=== PATIENT | male | born 1965 | race African-American/Black ===

== ENCOUNTER 2021-06-28 17:32 | Outpatient (CLI) | payer SELFPAY | END 2021-06-28 17:33 | disposition short-term general hospital (02) | LOC: EMS 17:32 | DX: S98.122A Partial traumatic amputation of left great toe, initial encounter (principal); W29.3XXA Contact with powered garden and outdoor hand tools and machinery, initial encounter; Y93.89 Activity, other specified | CPT/HCPCS: A0425; A0429 ==

== ENCOUNTER 2022-01-23 14:52 | Outpatient (CLI) | payer MEDICAID | END 2022-01-23 14:53 | disposition short-term general hospital (02) | LOC: EMS 14:52 | DX: S38.1XXA Crushing injury of abdomen, lower back, and pelvis, initial encounter (principal); S28.0XXA Crushed chest, initial encounter; W31.89XA Contact with other specified machinery, initial encounter; Y93.H3 Activity, building and construction; Y92.69 Other specified industrial and construction area as the place of occurrence of the external cause; Y99.0 Civilian activity done for income or pay | CPT/HCPCS: A0425; A0427; A0999 ==

== ENCOUNTER 2022-12-29 13:50 | Outpatient (CLI) | payer MEDICAID ==
--- NOTE | 2022-12-29 16:41 | XRAY Report ---
PROCEDURE: Thoracic Spine 3 View INDICATIONS: CHRONIC THORACIC BACK PAIN TECHNIQUE: 3 views of the thoracic spine were acquired. COMPARISON: None. FINDINGS: Bones: No fractures or dislocations. No suspicious bony lesions. 12 pairs of ribs are noted, and a ppear intact where visualized. Slight rightward curvature of the thoracolumbar spine. Soft tissues: No paravertebral stripe thickening. IMPRESSION: No displaced fracture or traumatic subluxation. Reviewed by: Driss Umanzor on 12/29/2022 4:40 PM PDT Approved by: Driss Umanzor on 12/29/2022 4:40 PM PDT Station ID: [id number]
--- NOTE | 2022-12-29 16:43 | XRAY Report ---
PROCEDURE: Lumbar Spine 2 View INDICATIONS: CHRONIC THORACIC BACK PAIN TECHNIQUE: 2 views of the lumbar spine were acquired. COMPARISON: None. FINDINGS: Bones: 5 [id number] vertebrae are present. Slight leftward curvature of the spine. Grade 1 ante rolisthesis of L2 on L3. Moderate disc height loss at L2-3. Possible pars defect at L2-3. Soft tissues: Overlying bowel gas pattern is normal. No suspicious soft tissue calcifications. IMPRESSION: Possible pars defect at L2-3, with grade 1 anterolisthesis. This is an atypical location for a pars d efect, so underlying fracture not excluded. Consider CT or MRI for confirmation. Moderate disc height loss at L2-3. Reviewed by: Driss Umanzor on 12/29/2022 4:41 PM PDT Approved by: Driss Umanzor on 12/29/2022 4:41 PM PDT Station ID: [id number]
== END 2022-12-29 13:51 | disposition home or self-care (01) ==
LOC: DI 13:50
PROVIDERS: ATTEND Physician Assistant Medical
DX: M54.6 Pain in thoracic spine (principal); G89.29 Other chronic pain; M47.816 Spondylosis without myelopathy or radiculopathy, lumbar region

== ENCOUNTER 2023-01-11 09:18 | Outpatient (CLI) | payer MEDICAID ==
--- NOTE | 2023-01-11 17:49 | CT Report ---
PROCEDURE: LUMBAR SPINE WO INDICATIONS: CHRONIC THORACIC BACK PAIN TECHNIQUE: Noncontrast 3 mm thick sections acquired from the T12 level to the sacrum. Sagittal and coronal refo rmats were constructed. For radiation dose reduction, the following was used: automated exposure co ntrol, adjustment of mA and/or kV according to patient size. COMPARISON: None. FINDINGS: Image quality: Excellent. Bones: 3 mm anterolisthesis of L2 on L3. Trace retrolisthesis of L3 on L4. No acute vertebral body co mpression fractures. No suspicious lytic or blastic bony lesions. Central spinal caliber is of norm al overall caliber. No pars defects. T12-L1: No canal stenosis or foraminal stenosis. L1-L2: No canal stenosis or foraminal stenosis. L2-L3: Severe disc height loss. Mild anterolisthesis of L2 on L3. Mild facet hypertrophy. Disc bul ge. Borderline canal stenosis. No significant foraminal stenosis. L3-L4: Disc bulge. Mild facet hypertrophy. Borderline canal stenosis. No significant foraminal sten osis. L4-L5: Disc bulge. Mild canal stenosis. No significant foraminal stenosis. L5-S1: No canal stenosis or significant foraminal stenosis. Soft tissues: No retroperitoneal masses or hematomas. Visualized aorta is normal in caliber. IMPRESSION: Mild degenerative change. Mild canal stenosis at L4-L5. Reviewed by: Gene Wilde MD on 01/11/2023 5:48 PM PDT Approved by: Gene Wilde MD on 01/11/2023 5:48 PM PDT Station ID: [id number]
== END 2023-01-11 09:19 | disposition home or self-care (01) ==
LOC: DI 09:18
PROVIDERS: ATTEND Physician Assistant Medical
DX: M47.816 Spondylosis without myelopathy or radiculopathy, lumbar region (principal); M48.061 Spinal stenosis, lumbar region without neurogenic claudication

== ENCOUNTER 2023-07-15 15:36 | Outpatient (CLI) | payer OTHER ==
[~2023-07-15 15:36] MED LIST: GADOTERATE MEGLUMINE 10 MMOL/20 ML VIAL ONE
[2023-07-15] MEDS: GADOTERATE MEGLUMINE 10 MMOL/20 ML VIAL IVP ONE (16:03)
--- NOTE | 2023-07-15 21:07 | MRI Report ---
PROCEDURE: Thoracic Spine W/WO INDICATIONS: PARESTHESIA CONTRAST: CLARISCAN 14.6 ML TECHNIQUE: Noncontrast sagittal T1 spin echo and T2 fast spin echo, sagittal STIR, axial T1 and T2 fast spin ech o through the thoracic spine. After the administration of contrast, axial and sagittal T1 spin echo with fat saturation through the thoracic spine. COMPARISON: Correlation is made with prior thoracic spine plain films, 12/29/2022 as well as overlappi ng portions of lumbar spine CT, 01/11/2023. FINDINGS: Image quality: Motion artifact is noted. Alignment and curvature: Mild levoconvex scoliotic curvature is seen. Marrow: Marrow is of normal overall signal. No acute vertebral body compression fractures. Spinal cord: Visualized spinal cord is of normal signal and size, without abnormal enhancement. Paraspinous soft tissues: No paravertebral masses or abnormal enhancement. At least one wire signal cyst can be seen involving the right kidney. Miscellaneous: Focal disc space narrowing can be seen at the T3-T4 level. This has the appearance of congenital fusion, although please correlate with known patient history. No significant neural foraminal or central canal narrowing can be seen. IMPRESSION: Thoracic spine MRI within normal limits for age, with note made of mild dextroconvex sco liotic curvature. 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
== END 2023-07-15 15:37 | disposition home or self-care (01) ==
LOC: DI 15:36
PROVIDERS: ATTEND Psychiatry & Neurology Neurology
DX: M41.9 Scoliosis, unspecified (principal); R20.2 Paresthesia of skin
CPT/HCPCS: 72157; A9575

== ENCOUNTER 2023-08-11 12:48 | Outpatient (CLI) | payer OTHER, MEDICAID ==
--- NOTE | 2023-08-11 18:13 | MRI Report ---
PROCEDURE: Lumbar Spine WO INDICATIONS: PARESTHESIAS TECHNIQUE: Noncontrast sagittal T1 spin echo and T2 fast echo, sagittal STIR, axial T1 and T2 fast spin echo thr ough the lumbar spine. In cases with scoliosis, additional coronal T2 fast spin echo may be performe d. COMPARISON: Correlation is made with prior lumbar CT, 01/03/2023. FINDINGS: Image quality: Excellent. Alignment and Curvature: There is mild anterolisthesis seen at the L2-L3 level. Minimal retrolisthes is can be seen at L3-L4. Mild levoconvex scoliotic curvature is seen. Bone Marrow: Marrow is of normal overall signal. No acute vertebral body compression fractures. Spinal Cord: Conus medullaris terminates at the L1 level. Visualized cord demonstrates normal signa l and size. Paraspinous Soft Tissues: No paravertebral masses. Water signal right kidney cysts can be seen. Transitional lumbar anatomy is seen, with moderate sacralization of the L5 level on both sides. This is better demonstrated on the prior lumbar CT. T12-L1: Normal in appearance. L1-L2: Normal in appearance. L2-L3: At least moderate loss of disc height and disc signal can be seen. Reactive marrow endplat e changes are seen, which are hyperintense on T1-weighted and T2-weighted imaging, without significan t increased STIR signal. These imaging findings are most consistent with fatty metaplasia (Modic type 2 change). Moderate disc bulge is seen at this level. Mild facet hypertrophy is seen. There is m oderate right-sided and mild left-sided neuroforaminal narrowing. Mild central canal narrowing is se en. L3-L4: Mild loss of disc height and disc signal are seen. Mild disc bulge is seen. Mild facet hypertrophy is seen. There is mild to moderate left-sided and mild right-sided neuroforaminal narrow ing. No central canal narrowing is seen. L4-L5: The disc height is well-preserved. There is loss of disc signal seen. Moderate disc bulge is seen at this level. A superimposed central disc protrusion is seen. Moderate facet hypertroph y is seen. There is at least moderate bilateral neural narrowing seen, right worse than left. There i s a mild degree of compression seen upon the exiting L4 nerve roots. Mild central canal narrowing is seen. L5-S1: No significant abnormality is seen. IMPRESSION: Multiple levels of lumbar spine degenerative change can be seen, which are overall worst at L2-L3 and L4-L5. Reviewed by: Sher Grant MD on 08/11/2023 5:12 PM [facility] Approved by: Sher Grant MD on 08/11/2023 5:12 PM [facility] Station ID: [id number]
== END 2023-08-11 12:49 | disposition home or self-care (01) ==
LOC: DI 12:48
PROVIDERS: ATTEND Psychiatry & Neurology Neurology
DX: M47.26 Other spondylosis with radiculopathy, lumbar region (principal); M51.36 Other intervertebral disc degeneration, lumbar region; M48.061 Spinal stenosis, lumbar region without neurogenic claudication